=== PATIENT | male | born 1950 | race Caucasian/White ===

== ENCOUNTER 2016-07-30 06:46 | Day surgery (SDC) | payer BC ==
[~2016-07-30] VITALS: Ht 175.3 cm; Wt 69.8 kg
[~2016-07-30 06:46] MED LIST: ZESTRIL20 MG PO
[2016-07-30 07:19] VITALS: BP 147/73
[2016-07-30 07:36] LABS: HEMATOCRIT 42.6 % (38.0-50.0); MCH 28.9 PG (29.0-34.0); MCHC 33.3 G/DL (30.0-36.0); MCV 86.8 FL (86-99); MEAN PLAT.VOLUME 10.5 uM^3 (9.0-12.4); PLATELET COUNT 243 K/uL (156-360); RBC DIS.WIDTH-CV 13.5 % (11.8-14.6); RBC DIS.WIDTH-SD 42.5 % (39-53); RED BLOOD COUNT 4.91 M/uL (4.00-5.50); WHITE BLOOD COUNT 8.3 K/uL (4.1-10.2)
[2016-07-30 07:53] LABS: ANION GAP 9 MEQ/L (2-14); CHLORIDE 107 MEQ/L (99-109); POTASSIUM 4.2 MEQ/L (3.7-5.4); SAMPLE HEMOLYSIS CHECK 0; SAMPLE ICTERIC CHECK 0; SAMPLE LIPEMIA CHECK 0; SODIUM 139 MEQ/L (136-147); TOTAL BILIRUBIN 0.5 MG/DL (0.0-1.0)
[2016-07-30 07:59] LABS: ALKALINE PHOSPHATASE 74 IU/L (3-129); GFR ESTIMATE (CALCULATED) > 59 mL/min/; GLUCOSE 98 mg/dL (70-99); UREA NITROGEN (BUN) 20 mg/dL (9-23)
[2016-07-30 12:43] VITALS: BP 159/83
== END 2016-07-30 13:04 | disposition home or self-care (01) ==
LOC: SDC 06:46
PROVIDERS: Ophthalmology
DX: H27.132 Posterior dislocation of lens, left eye (principal); H53.022 Refractive amblyopia, left eye; I10 Essential (primary) hypertension; E78.5 Hyperlipidemia, unspecified
CPT/HCPCS: 80053; 85027; J0690; J1100; J2250; J2795; J3010; J3300